=== PATIENT | male | born 1995 | race Caucasian/White ===

== ENCOUNTER 2024-06-13 05:43 | Emergency (ER) | payer OTHER ==
[~2024-06-13] VITALS: Ht 180.3 cm; Wt 113.4 kg
[2024-06-13] MEDS ORDERED: Morphine Sulfate 4 MG/1 ML Injection IV ONE (06:15)
[2024-06-13] MEDS ORDERED: Ketorolac Tromethamine 30mg Vial IV ONE (06:15)
[2024-06-13] MEDS ORDERED: HYDROmorphone HCl/Pf 1MG SYR IV ONE (06:40)
[2024-06-13] MEDS ORDERED: NS 1,000 ML IV SCH (07:15)
[2024-06-13] MEDS ORDERED: Propofol 10mg/ml 20 ml Vial (Procedural) IV SCH (07:15)
[2024-06-13] MEDS ORDERED: FentaNYL Citrate 50 MCG/ML 2 ML Injection ONE (07:44)
[2024-06-13] MEDS ORDERED: FentaNYL Citrate 50 MCG/ML 2 ML Injection IV ONE (08:05)
[2024-06-13] MEDS ORDERED: HYDR1TAB94 PO (09:21)
== END 2024-06-13 10:36 | disposition home or self-care (01) ==
LOC: ER 05:43
DX: S82.892A Other fracture of left lower leg, initial encounter for closed fracture (principal); S93.122A Dislocation of metatarsophalangeal joint of left great toe, initial encounter; S93.125A Dislocation of metatarsophalangeal joint of left lesser toe(s), initial encounter; I48.91 Unspecified atrial fibrillation; W01.0XXA Fall on same level from slipping, tripping and stumbling without subsequent striking against object, initial encounter
CPT/HCPCS: 28630; 73600; 73610; 73620; 73630; 73660; 96374; 96375; 99152; 99284-25; J1171; J1885; J2270; J2704; J3010; J7030